=== PATIENT | male | born 1965 | race Two or more races ===

== ENCOUNTER 2024-08-29 14:35 | Emergency (ER) | payer OTHER ==
[~2024-08-29] VITALS: Ht 182.9 cm; Wt 90.7 kg
[2024-08-29] MEDS ORDERED: KETOROLAC TROMETHAMINE 30 MG VIAL IV ONE (17:00)
[2024-08-29] MEDS ORDERED: FAMOtidine 10 MG/ML (4ML VIAL) IV ONE (17:00)
[2024-08-29] MEDS ORDERED: CEFTRIAXONE SODIUM 1,000 MG VIAL IV ONE (17:00)
[2024-08-29] MEDS ORDERED: ONDANSETRON HCL 2 MG/ML VIAL IV ONE (17:00)
[2024-08-29] MEDS ORDERED: TAMSULOSIN HCL 0.4 MG CAP PO ONE ×2 (17:00→17:26)
[2024-08-29] MEDS ORDERED: KETOROLAC TROMETHAMINE 30 MG VIAL ONE (17:25)
[2024-08-29] MEDS ORDERED: CEFTRIAXONE SODIUM 1,000 MG VIAL ONE (17:26)
[2024-08-29] MEDS ORDERED: FAMOTIDINE/PF 20 MG/2 ML VIAL ONE (17:26)
[2024-08-29] MEDS ORDERED: ONDANSETRON HCL 2 MG/ML VIAL ONE (17:26)
[2024-08-29 18:05] LABS: BASO % 0.3 % (0.1-1.2); HEMATOCRIT 43.8 % (40.1-51.0); HEMOGLOBIN 14.4 g/dL (13.7-17.5); LYMPH # 0.79 (1.18-3.74); LYMPH % 8.4 % (19.3-53.1); MEAN CORPUSCULAR HEMOGLOBIN 29.1 pg (25.6-32.2); MONO # 0.58 (0.24-0.82); MONO % 6.2 % (4.7-12.5); NEUT # 7.98 (1.56-6.13); NEUT % 84.9 % (34.0-71.1); PLATELET COUNT 188 K/uL (163-369); RED BLOOD COUNT 4.94 M/uL (4.63-6.08); RED CELL DISTRIBUTION WIDTH 14.4 % (11.6-14.4)
[2024-08-29 18:30] LABS: ALBUMIN 4.1 gm/dL (3.4-5.0); BILIRUBIN TOTAL 0.48 mg/dL (0.3-1.2); CALCIUM 10.1 mg/dL (8.5-10.1); CREATININE SERUM 0.96 mg/dL (0.70-1.30); GFR 80.17; GLOBULINA 4.2 G/DL (2.4-3.5); POTASSIUM 4.25 mEq/L (3.5-5.1); TOTAL PROTEIN 8.3 gm/dL (6.4-8.2)
[2024-08-29 18:31] LABS: INR 1.01; PARTIAL THROMBOPLASTIN TIME 24.5 SECONDS (22.0-34.0)
[2024-08-29] MEDS ORDERED: PEPCID AC20 MG PO (20:13)
[2024-08-29] MEDS ORDERED: KETO10TA2 PO (20:13)
[2024-08-29] MEDS ORDERED: BACTRIM DS TAB1 EACH PO (20:13)
[2024-08-29] MEDS ORDERED: NORFLEX100MG PO (20:13)
[2024-08-29] MEDS ORDERED: TAMS0.4C PO (20:13)
[2024-08-29 22:31] LABS: PH,URINE 5.5 (5.0-8.0); URINE APPEARANCE Clear; URINE BILIRRUBIN Negative (NEGATIVE); URINE BLOOD Small; URINE COLOR Yellow; URINE GLUCOSE Negative (NEGATIVE); URINE KETONE Trace (NEGATIVE); URINE LEUKOCYTE Small; URINE NITRATE Negative; URINE PROTEIN Trace (NEGATIVE); URINE UROBILINOGEN 0.2 E.U./dl
[2024-08-29 22:35] LABS: URINE BACTERIA 17.1 uL (0.0-1933); URINE RBC 106.3 uL (0.0-20.8); URINE WBC 47.6 uL (0.0-23.2)
[2024-08-29 22:37] LABS: URINE CAST 1.03 uL (0.0-1.40)
== END 2024-08-29 20:45 | disposition home or self-care (01) ==
LOC: ER 14:35
PROVIDERS: General Practice
DX: R10.9 Unspecified abdominal pain (principal); N20.1 Calculus of ureter

== ENCOUNTER 2024-09-05 04:01 | Emergency (ER) | payer OTHER ==
[~2024-09-05] VITALS: Ht 182.9 cm; Wt 90.7 kg
[~2024-09-05 04:01] MED LIST: BACTRIM DS TAB1 EACH PO; KETO10TA2 PO; NORFLEX100MG PO; PEPCID AC20 MG PO; TAMS0.4C PO
[2024-09-05] MEDS ORDERED: TAMS0.4C (04:22)
[2024-09-05] MEDS ORDERED: TRAMADOL HCL 50 MG TABLET PO STA (04:43)
[2024-09-05] MEDS ORDERED: KETOROLAC TROMETHAMINE 60 MG VIAL IM STA (04:43)
== END 2024-09-05 05:59 | disposition home or self-care (01) ==
LOC: ER 04:01
DX: N20.1 Calculus of ureter (principal)